=== PATIENT | female | born 1950 | race Two or more races ===

== ENCOUNTER 2017-10-19 09:28 | Outpatient (CLI) | payer OTHER | END 2017-10-19 09:35 | disposition home or self-care (01) | LOC: SONOGRAMA 09:28 | DX: E04.1 Nontoxic single thyroid nodule (principal) ==

== ENCOUNTER 2018-01-30 07:19 | Outpatient (CLI) | payer OTHER | END 2018-01-30 07:27 | disposition home or self-care (01) | LOC: NUCLEAR 07:19 | DX: I20.9 Angina pectoris, unspecified (principal) | CPT/HCPCS: 78452; 93017; A9500; J0153 ==

== ENCOUNTER 2019-07-24 06:24 | Day surgery (SDC) | payer OTHER ==
[~2019-07-24 06:24] MED LIST: CARAFATE1 GM PO; CLONAZEPAM0.5 MG PO; DEXILANT60 MG PO; SIMVASTATIN20 MG PO; VASOTEC10 MG PO; VITAMEDMD REDI1.4 MG PO
[2019-07-24] MEDS ORDERED: ACETAMINOP-COD118 ML PO (12:15)
== END 2019-07-24 13:30 | disposition home or self-care (01) ==
LOC: CIR.AMB 06:24
PROVIDERS: ATTEND Surgery
DX: E04.2 Nontoxic multinodular goiter (principal)

== ENCOUNTER 2023-06-02 07:20 | Outpatient (CLI) | payer OTHER ==
[~2023-06-02 07:20] MED LIST changes: +ACETAMINOP-COD118 ML PO
== END 2023-06-02 07:21 | disposition home or self-care (01) ==
LOC: NUCLEAR 07:20
PROVIDERS: ATTEND Internal Medicine
DX: I20.9 Angina pectoris, unspecified (principal)
CPT/HCPCS: 78452; 93017; A9500; J0153

== ENCOUNTER 2024-06-04 09:52 | Emergency (ER) | payer OTHER ==
[~2024-06-04] VITALS: Ht 177.8 cm; Wt 69.9 kg
[2024-06-04 09:56] VITALS: BP 149/84; O2SAT 98
[2024-06-04] MEDS ORDERED: PEPCID AC20 MG PO (09:59)
[2024-06-04] MEDS ORDERED: CRESTOR40 MG (09:59)
[2024-06-04] MEDS ORDERED: TOPROL XL50 M1 PO (10:00)
[2024-06-04] MEDS ORDERED: HYOSCYAMINE SULFATE 0.125 MG TAB.SUBL SL ONE (10:15)
[2024-06-04] MEDS ORDERED: FAMOtidine 10 MG/ML (4ML VIAL) IV ONE (10:15)
[2024-06-04] MEDS ORDERED: ONDANSETRON HCL 2 MG/ML VIAL IV ONE (10:15)
[2024-06-04] MEDS ORDERED: ONDANSETRON HCL 2 MG/ML VIAL ONE (10:43)
[2024-06-04] MEDS ORDERED: HYOSCYAMINE SULFATE 0.125 MG TAB.SUBL ONE (10:43)
[2024-06-04] MEDS ORDERED: FAMOTIDINE/PF 20 MG/2 ML VIAL ONE (10:43)
[2024-06-04 10:48] LABS: HEMATOCRIT 43.4 % (36.0-45.00); HEMOGLOBIN 14.9 g/dL (12.0-15.00); MEAN CELL VOLUME 88.9 fL (80.00-100.00); MEAN CORPUSCULAR HEMOGLOBIN 30.5 pg (27.00-32.0); MEAN CORPUSCULAR HGB CONC 34.3 g/dl (32.0-36.0); PLATELET COUNT 340 K/uL (150-450); RED BLOOD COUNT 4.88 M/uL (4.00-6.00); RED CELL DISTRIBUTION WIDTH 12.4 % (11.5-14.5)
[2024-06-04 11:53] LABS: ALBUMIN 3.9 gm/dL (3.4-5.0); BILIRUBIN TOTAL 0.58 mg/dL (0.3-1.2); CALCIUM 9.5 mg/dL (8.5-10.1); CREATININE SERUM 0.83 mg/dL (0.55-1.02); GFR 67.02; POTASSIUM 4.23 mEq/L (3.5-5.1); TOTAL PROTEIN 7.9 gm/dL (6.4-8.2)
[2024-06-04] MEDS ORDERED: PROTONIX40 MG PO (12:21)
== END 2024-06-04 12:34 | disposition home or self-care (01) ==
LOC: ER 09:53
PROVIDERS: General Practice
DX: K21.9 Gastro-esophageal reflux disease without esophagitis (principal); I10 Essential (primary) hypertension; E03.9 Hypothyroidism, unspecified; G47.30 Sleep apnea, unspecified; Z88.8 Allergy status to other drugs, medicaments and biological substances
CPT/HCPCS: 36415; 71045; 93005; 96365; 99283; J2405; J3490